=== PATIENT | female | born 1940 | race Caucasian/White ===

== ENCOUNTER 2018-06-19 19:53 | Inpatient (IN) | payer MEDICARE ==
[~2018-06-19] VITALS: Ht 157.5 cm; Wt 75.8 kg
[2018-06-19] MEDS ORDERED: SODIUM CHLORIDE 0.9% 1,000ML IVBOLUS ONE (20:30)
[2018-06-19 20:54] LABS: BASOPHILS # (AUTO) 0.01 x10^3/uL (0-0.1); BASOPHILS % (AUTO) 0 % (0-1); EOSINOPHILS % (AUTO) 0 % (1-7); LYMPHOCYTES # (AUTO) 0.75 x10^3/uL (1-3.4); LYMPHOCYTES % (AUTO) 6 % (22-44); MD NO; MEAN CORPUSCULAR HEMOGLOBIN 29.1 pg (27.0-34.8); MEAN CORPUSCULAR HGB CONC 33.8 g/dL (32.4-35.8); MEAN CORPUSCULAR VOLUME 86.1 fL (80-100); MEAN PLATELET VOLUME 6.9 fL (7.4-10.4); MONOCYTES % (AUTO) 2 % (2-9); NEUTROPHILS # (AUTO) 11.89 x10^3/uL (1.8-6.8); NEUTROPHILS % (AUTO) 92 % (42-75); PLATELET COUNT 244 x10^3/uL (130-400); RED BLOOD COUNT 5.51 x10^6/uL (3.82-5.3); RED CELL DISTRIBUTION WIDTH 14.3 % (9.6-15.2)
[2018-06-19] MEDS ORDERED: AZITHROMYCIN 500 MG in SODIUM CHLORIDE 0.9% 250 ML IV ONE (21:00)
[2018-06-19] MEDS ORDERED: CEFTRIAXONE PMX 1GM/50ML 50 ML ONE (21:01)
[2018-06-19] MEDS: CEFTRIAXONE PMX 1GM/50ML 50 ML IV SCH (21:12)
[2018-06-19 21:20] LABS: RAPID INFLUENZA A Negative (Negative); RAPID INFLUENZA B Negative (Negative)
[2018-06-19 21:27] LABS: ALANINE AMINOTRANSFERASE 14 U/L (12-78); ALBUMIN 3.4 g/dL (3.4-5.0); ANION GAP 10 mmol/L (5-15); CALCIUM 9.1 mg/dL (8.5-10.1); CHLORIDE 103 mmol/L (98-107); CREATININE 0.91 mg/dL (0.55-1.02)
[2018-06-19 21:31] LABS: ALKALINE PHOSPHATASE 78 U/L (45-117); BILIRUBIN,TOTAL 1.1 mg/dL (0.2-1.0); TOTAL PROTEIN 7.1 g/dL (6.4-8.2); TROPONIN I < 0.015 ng/mL (0.000-0.045)
[2018-06-19 23:17] VITALS: BP 153/76
[2018-06-19] MEDS ORDERED: GUAIFENESIN/DM 200-20MG, 10ML UDC PO PRN (23:30)
[2018-06-19] MEDS ORDERED: TEMAZEPAM 15 MG CAPSULE PO PRN (23:30)
[2018-06-19] MEDS ORDERED: ONDANSETRON ODT 4 MG PO PRN (23:30)
[2018-06-19] MEDS ORDERED: hydrALAzine 20 MG/ML, 1ML IVPush PRN (23:30)
[2018-06-19] MEDS ORDERED: ACETAMINOPHEN 325 MG TABLET PO PRN (23:30)
[2018-06-19] MEDS ORDERED: DOCUSATE 100 MG CAPSULE PO PRN (23:30)
[2018-06-19] MEDS ORDERED: GABAPENTIN 300 MG CAPSULE PO PRN (23:30)
[2018-06-19] MEDS ORDERED: LIDODERM 5% PATCH TD PRN (23:30)
[2018-06-20 00:39] VITALS: BP 126/79
[2018-06-20 07:23] VITALS: BP 110/68
[2018-06-20] MEDS: CEFTRIAXONE PMX 1GM/50ML 50 ML IV SCH ×3 (09:31→21:21)
[2018-06-20] MEDS: ENOXAPARIN 40 MG/0.4 ML SQ SCH (09:32)
[2018-06-20] MEDS: GUAIFENESIN ER 600 MG TABLET PO SCH ×2 (09:32→21:21)
[2018-06-20 13:36] VITALS: BP 108/70
[2018-06-20] MEDS: FLUTICASONE NASAL SPRAY 16GM NAS SCH ×2 (14:19→21:00)
[2018-06-20 18:59] VITALS: BP 122/72
[2018-06-20] MEDS ORDERED: AZITHROMYCIN 500 MG in SODIUM CHLORIDE 0.9% 250 ML IV SCH (22:00)
[2018-06-21 01:50] VITALS: BP 129/75
[2018-06-21 05:44] LABS: BASOPHILS # (AUTO) 0.05 x10^3/uL (0-0.1); BASOPHILS % (AUTO) 1 % (0-1); EOSINOPHILS # (AUTO) 0.13 x10^3/uL (0-0.4); EOSINOPHILS % (AUTO) 2 % (1-7); LYMPHOCYTES # (AUTO) 1.11 x10^3/uL (1-3.4); LYMPHOCYTES % (AUTO) 13 % (22-44); MD NO; MEAN CORPUSCULAR HEMOGLOBIN 29.1 pg (27.0-34.8); MEAN CORPUSCULAR VOLUME 85.5 fL (80-100); MEAN PLATELET VOLUME 7.3 fL (7.4-10.4); MONOCYTES # (AUTO) 0.52 x10^3/uL (0.2-0.8); MONOCYTES % (AUTO) 6 % (2-9); NEUTROPHILS # (AUTO) 6.69 x10^3/uL (1.8-6.8); NEUTROPHILS % (AUTO) 79 % (42-75); PLATELET COUNT 216 x10^3/uL (130-400); RED BLOOD COUNT 4.56 x10^6/uL (3.82-5.3); RED CELL DISTRIBUTION WIDTH 14.4 % (9.6-15.2)
[2018-06-21 05:46] LABS: CHLORIDE 108 mmol/L (98-107)
[2018-06-21 06:57] LABS: ANION GAP 9 mmol/L (5-15)
[2018-06-21 07:11] LABS: CALCIUM 8.5 mg/dL (8.5-10.1); CREATININE 0.61 mg/dL (0.55-1.02)
[2018-06-21 07:21] VITALS: BP 122/76
[2018-06-21] MEDS: FLUTICASONE NASAL SPRAY 16GM NAS SCH (09:00)
[2018-06-21] MEDS: GUAIFENESIN ER 600 MG TABLET PO SCH (09:28)
[2018-06-21] MEDS: ENOXAPARIN 40 MG/0.4 ML SQ SCH (09:28)
[2018-06-21] MEDS: CEFTRIAXONE PMX 1GM/50ML 50 ML IV SCH (09:28)
[2018-06-21] MEDS ORDERED: GUAI600T31 PO (12:34)
[2018-06-21] MEDS ORDERED: AZIT250T89 PO (12:34)
[2018-06-21] MEDS ORDERED: CEFD300C37 PO (12:34)
[2018-06-21 12:38] VITALS: BP 139/80
== END 2018-06-21 13:50 | disposition home or self-care (01) | DRG 871 ==
LOC: ED 21:39 → EDIP 21:45 → 3NW 22:41 → DCLOUNGE 06-21 13:35
PROVIDERS: ADMIT Family Medicine; ATTEND Family Medicine
DX: A41.9 Sepsis, unspecified organism (principal); J15.9 Unspecified bacterial pneumonia; J96.01 Acute respiratory failure with hypoxia; J44.0 Chronic obstructive pulmonary disease with (acute) lower respiratory infection; Z87.891 Personal history of nicotine dependence; Z88.0 Allergy status to penicillin
CPT/HCPCS: 36415; 71045; 80048; 80053; 83605; 83880; 84484; 85025; 86140; 87040; 87400; 93005; 96361; 96365; G0378; J0456; J0696; J1650; Q0162; J7030; J7050